=== PATIENT | male | born 1985 | race Caucasian/White ===

== ENCOUNTER 2021-12-25 06:53 | Emergency (ER) | payer MEDICAID ==
[~2021-12-25] VITALS: Ht 175.3 cm; Wt 60.0 kg
[2021-12-25] MEDS ORDERED: OXYCODONE HCL/ACETAMINOPHEN 5/325MG TABLET PO ONE (07:30)
[2021-12-25] MEDS ORDERED: IBUP-2028 PO (08:28)
[2021-12-25 09:08] VITALS: BP 122/89
== END 2021-12-25 09:09 | disposition home or self-care (01) ==
LOC: ER 07:53
DX: S93.492A Sprain of other ligament of left ankle, initial encounter (principal); M25.512 Pain in left shoulder; W01.0XXA Fall on same level from slipping, tripping and stumbling without subsequent striking against object, initial encounter; Y93.01 Activity, walking, marching and hiking; Y92.89 Other specified places as the place of occurrence of the external cause
CPT/HCPCS: 73030; 73610; 99284

== ENCOUNTER 2022-10-10 05:52 | Emergency (ER) | payer MEDICAID, OTHER ==
[~2022-10-10] VITALS: Ht 172.7 cm; Wt 77.0 kg
[~2022-10-10 05:52] MED LIST: IBUP-2028 PO
[2022-10-10 05:55] VITALS: BP 142/78
[2022-10-10 08:47] LABS: BASOPHILS % 0.4 % (0.0-2.0); EOSINOPHILS % 0.1 % (0.0-5.0); HEMATOCRIT. 36.9 % (42.0-52.0); HEMOGLOBIN. 12.5 g/dL (14.0-18.0); LYMPHOCYTES % 8.7 % (20.0-50.0); MEAN CORPUSCULAR HEMOGLOBIN 31.1 pg (28.0-32.0); MEAN CORPUSCULAR VOLUME 91.8 fL (80.0-94.0); MEAN PLATELET VOLUME 8.8 fl (7.4-10.4); MONOCYTES % 6.8 % (2.0-8.0); PLATELET 245 x1000/uL (130-400); RED BLOOD CELL COUNT 4.02 mill/uL (4.7-6.1); RED CELL DISTRIBUTION WIDTH 13.9 % (11.6-14.6)
[2022-10-10 08:52] LABS: CHLORIDE 103 mEq/L (98-107)
[2022-10-10 09:00] LABS: ETHANOL BLOOD < 10 mg/dL
== END 2022-10-10 13:04 | disposition left against medical advice (07) ==
LOC: ER 05:52
DX: Z53.21 Procedure and treatment not carried out due to patient leaving prior to being seen by health care provider (principal); M79.641 Pain in right hand
CPT/HCPCS: 36415; 73130; 80053; 80320; 85025; 99281; G0480

== ENCOUNTER 2022-10-15 08:56 | Emergency (ER) | payer MEDICAID ==
[~2022-10-15] VITALS: Ht 175.3 cm; Wt 82.0 kg
[2022-10-15 09:03] VITALS: BP 140/95
[2022-10-15] MEDS ORDERED: TETANUS, DIPHTHERIA, PERTUSSIS VAC/PF 0.5ML (>10YR OLD) IM ONE (11:15)
[2022-10-15] MEDS ORDERED: IBUPROFEN 600MG TABLET PO ONE (11:15)
== END 2022-10-15 13:05 | disposition left against medical advice (07) ==
LOC: ER 09:08
DX: S69.91XA Unspecified injury of right wrist, hand and finger(s), initial encounter (principal); G89.11 Acute pain due to trauma; F15.10 Other stimulant abuse, uncomplicated; Z53.21 Procedure and treatment not carried out due to patient leaving prior to being seen by health care provider; X58.XXXA Exposure to other specified factors, initial encounter; Y93.89 Activity, other specified; Y92.89 Other specified places as the place of occurrence of the external cause; Y99.8 Other external cause status
CPT/HCPCS: 73130; 73140; 90471; 90715; 99284; Z7610

== ENCOUNTER 2023-06-08 16:03 | Emergency (ER) | payer OTHER, MEDICAID ==
[~2023-06-08] VITALS: Ht 162.6 cm; Wt 70.0 kg
[2023-06-08 16:06] VITALS: O2SAT 99
[2023-06-08] MEDS ORDERED: IBUPROFEN 400MG TABLET PO ONE (16:15)
[2023-06-08 18:29] VITALS: BP 135/87; PULSE 86; RESP 18; TEMP 98.4
== END 2023-06-08 18:31 ==
LOC: ER 16:03
DX: M79.18 Myalgia, other site (principal); M79.644 Pain in right finger(s); R51.9 Headache, unspecified; F15.90 Other stimulant use, unspecified, uncomplicated
CPT/HCPCS: 73130; 99283